=== PATIENT | female | born 1950 | race Caucasian/White ===

== ENCOUNTER → 2018-05-20 | Outpatient (CLI) | payer MEDICARE ==
[2018-05-20 10:12] LABS: Anisocytosis Slight; HCT 36.9 % (34.0-46.0); HGB 12.4 gm/dL (11.4-16.0); MCH 28.6 pg (25.0-35.0); MCHC 33.5 g/dL (31.0-37.0); MCV 85.5 fL (80.0-100.0); Mean Platelet Volume 8.1; Platelet Count 217 k/uL (150-450); RBC 4.32 m/uL (3.80-5.40); RDW 19.6 % (11.5-15.5); WBC 6.3 k/uL (3.8-10.6)
[2018-05-20 10:20] LABS: Partial Thromboplastin Time 22.8 sec (22.0-30.0); Prothrombin Time 10.1 sec (9.0-12.0)
[2018-05-20 10:31] LABS: ALT 12 U/L (9-52); AST 19 U/L (14-36); Albumin 4.1 g/dL (3.5-5.0); Alkaline Phosphatase 111 U/L (38-126); Anion Gap 10 mmol/L; Blood Urea Nitrogen 12 mg/dL (7-17); Calcium 9.5 mg/dL (8.4-10.2); Carbon Dioxide 23 mmol/L (22-30); Chloride 110 mmol/L (98-107); Glucose 97 mg/dL (74-99); Potassium 4.4 mmol/L (3.5-5.1); Sodium 143 mmol/L (137-145); Total Bilirubin 0.4 mg/dL (0.2-1.3); Total Protein 6.7 g/dL (6.3-8.2)
[2018-05-20 10:54] LABS: Appearance,Urine Clear (Clear); Bilirubin,Urine Negative (Negative); Blood,Urine Negative (Negative); Color,Urine Yellow; Glucose,Urine (UA) Negative (Negative); Ketones,Urine Negative (Negative); Leukocyte Esterase,Urine Moderate (Negative); Mucus,Urine Rare /hpf; Nitrite,Urine Negative (Negative); Protein,Urine Trace (Negative); RBC,Urine 2 /hpf (0-5); Specific Gravity,Urine 1.023 (1.001-1.035); Squamous Epithelial Cell,Urine 2 /hpf (0-4); WBC,Urine 8 /hpf (0-5)
== END ==
LOC: LABPAT 09:39
PROVIDERS: ATTEND Orthopaedic Surgery
DX: Z01.812 Encounter for preprocedural laboratory examination (principal)
CPT/HCPCS: 36415; 80053; 81001; 85027; 85610; 85730; 87070

== ENCOUNTER 2018-06-07 09:29 | Inpatient (IN) | payer MEDICARE ==
[2018-05-27 11:43] VITALS: BMI 28.3
[~2018-06-07 09:29] MED LIST: ACETAMINOPHEN TAB 500 MG TAB PO ONE; MELOXICAM 7.5 MG TAB PO ONE; ROPIVACAINE 246.25 MG, EPINEPHrine 0.5 MG, KETOROLAC 30 MG, cloNIDine HCL/PF 80 MCG, WA... MISCELLANE ONE; TRANEXAMIC ACID 1,000 MG in SODIUM CHLORIDE 0.9% 50 ML IVPB ONE; ceFAZolin IN SWFI 2 GM/20 ML SYRINGE IVP ONE; fentaNYL (PF) 50 MCG/ML 2 ML AMP IV PRN
[2018-06-07] MEDS ORDERED: ONDANSETRON 4 MG/2 ML VIAL ONE (11:46)
[2018-06-07] MEDS ORDERED: MIDAZOLAM 2 MG/2 ML VIAL ONE ×2 (11:46→13:59)
[2018-06-07] MEDS ORDERED: LIDOCAINE 1% 20 ML VIAL (10MG/ML) FOR IV START INTRADERMA ONE (12:01)
[2018-06-07] MEDS: LACTATED RINGERS 1,000 ML IV SCH ×2 (12:01→17:59)
[2018-06-07] MEDS ORDERED: ROPIVACAINE 1,100 MG, SODIUM CHLORIDE 0.9% 330 ML MISCELLANE PRN ×2 (12:35)
--- NOTE | 2018-06-07 12:36 | P.ONQ ---
Anesthesiology Proc Note - PNB - Peripheral Nerve Block Performed Right Adductor Canal Infusion Time Out Performed: Yes Procedure Start Time: 12:18 Procedure Stop Time: 12:32 Indication: Acute Post-Operative Pain, Requested by physician (Dr Zavala) Sedation Type: Sedate with meaningful contact maintained Preparation: Sterile Dressing Position: Supine Catheter: Indwelling Needle Types: Touhy Needle Size: 100mm (4") Needle Gauge: 18 Technique: Ultrasound (Image saved) Injectate: 0.5% Ropivacaine (see comment for volume) (30 mls) Blood Aspirated: No Pain Paresthesia on Injection Noted: No Resistance on Injection: Normal Events: Uneventful and Well Tolerated
[2018-06-07] MEDS ORDERED: fentaNYL (PF) 50 MCG/ML 2 ML AMP ONE (13:59)
[2018-06-07] MEDS ORDERED: diphenhydrAMINE 50 MG/ML 1 ML VIAL ONE (13:59)
[2018-06-07] MEDS ORDERED: SODIUM CHLORIDE 0.9% 100 ML BAG ONE (13:59)
[2018-06-07] MEDS ORDERED: TRANEXAMIC ACID 1,000 MG/10 ML VIAL ONE (13:59)
[2018-06-07] MEDS ORDERED: NALOXONE 0.4 MG/ML 1 ML VIAL IV PRN (14:09)
[2018-06-07] MEDS ORDERED: ONDANSETRON 4 MG/2 ML VIAL IVP PRN (14:09)
[2018-06-07] MEDS ORDERED: HYDROmorphone 1 MG/ML 1 ML SYRINGE IVP PRN ×3 (14:09)
[2018-06-07] MEDS ORDERED: MAGNESIUM HYDROXIDE 2,400 MG/10 ML CUP PO PRN (14:09)
[2018-06-07] MEDS ORDERED: hydrOXYzine PAMOATE 25 MG CAP PO PRN (14:09)
[2018-06-07] MEDS ORDERED: BISACODYL 10 MG SUPP RECTAL PRN (14:09)
[2018-06-07] MEDS ORDERED: DIAZEPAM 5 MG TAB PO PRN (14:09)
[2018-06-07] MEDS ORDERED: NA PHOS,M-B/NA PHOS,DI-BA 133 ML ENEMA RECTAL PRN (14:09)
[2018-06-07] MEDS ORDERED: traMADol 50 MG TAB PO PRN ×2 (14:11)
[2018-06-07] MEDS ORDERED: ceFAZolin 3,000 MG in SODIUM CHLORIDE 0.9% IRRIGATIO 3,000 ML IRRIGATION ONE (14:32)
--- NOTE | 2018-06-07 15:05 | P.OP ---
Date of Procedure: 06/07/18 Preoperative Diagnosis: Severe osteoarthritis right knee Postoperative Diagnosis: Severe osteoarthritis right knee Procedure(s) Performed: Right total knee arthroplasty Implants: Hough and Nephew Oxinium femoral component size 5, right Hough & Nephew Audrey II right nonporous tibial baseplate size 5 Hough [employer] Nephew size 9 mm Legion XLPE dished articular insert, size 5-6 Hough [employer] Nephew Audrey II resurfacing patellar component, 32 mm All components were cemented using Trevor bone cement.. The articulation is Oxinium on polyethylene. Anesthesia: spinal Surgeon: Rito Zavala Trimmer Buffing Wheel #1: Shyla Walsh Estimated Blood Loss (ml): 50 Pathology: other (Bone and cartilage) Condition: stable Disposition: PACU Indications for Procedure: After failure of conservative treatment we discussed the surgical and nonsurgical treatment options at length. Patient wishes to proceed with a total knee arthroplasty. Complications specific to this procedure were discussed at length, including but not limited to infection, bleeding, stiffness , and nerve injury. Patient is aware of all these complications and informed consent was obtained Operative Findings: The operative findings are consistent with severe osteoarthritis of the right knee Description of Procedure: Patient was seen in the preoperative area consent was reviewed and operative site was marked with a skin marker. An adductor canal pain catheter was placed by anesthesia in the preoperative area. Patient was then brought to the operating room and given preoperative antibiotics intravenously. A spinal anesthetic was administered by the anesthesia department. A tourniquet was placed on the upper thigh and the lower extremity was prepped and draped in usual sterile fashion. A gram of transexamic acid was given. A universal timeout was then performed which confirmed the patient's name, surgical site, ALLERGIES, and consent. The lower extremity was then exsanguinated and tourniquet was inflated to 250 mmHg. A standard and anterior midline approach to the knee was performed. The skin and subcutaneous tissue was dissected down to the patellar tendon. A medial parapatellar arthrotomy was then performed. The knee was then extended, the patellar was everted, and the knee was again flexed. Anterior horns of both menisci were excised, and a release was performed to the posterior medial aspect of the knee. On gross visual inspection, there was complete loss of articular cartilage in the medial and patellofemoral joint spaces. There was also significant cartilage damage in the lateral compartment. There were multiple periarticular osteophytes which were then removed with a Ronguer. The femoral canal was then opened with the appropriate drill, and the intramedullary femoral cutting guide was then placed and set for 4 of valgus. The distal femoral cutting block was then pinned in place, and the distal femur was then cut. The cutting block was then removed and the cut was checked for flatness. Next, the sizing guide was then placed and set for 3 external rotation based off of the epicondylar axis and Whitesides line. After the femur was sized, the appropriate 4-in-1 cutting block was then pinned in place. The anterior condyles were cut without notching. The posterior and chamfer cuts were performed while protecting the collateral ligaments. The cutting block was then removed, and the femoral canal was plugged with autologous bone. Attention was then directed to the tibia. The remaining ACL was removed with a Ronguer, and the tibia was then gently subluxed forward with a large bent knee retractor. Any remaining menisci was excised. The posterior lateral corner was cauterized in order to cauterize the lateral geniculate artery. The extra medullary tibial cutting guide was then placed, set for the appropriate rotation , slope, and depth of resection. The proximal tibia cutting guide was then pinned in place. Proximal tibia was then cut and sized. Next trials were then placed with the appropriate-sized insert. The knee was able to fully extend and flex to 130 and was stable throughout all range of motion. The knee was then extended, patella everted. Patella was then measured, and then using an osteotomy guide, the patella was cut at the appropriate level. The patella was then measured and drilled and the patella trial was then placed. The knee was then taken through range of motion with the patella trial and the patella tracked normally. The knee was then extended patella trial was then removed and the patella was everted. Knee was then flexed and lug holes were drilled through the femoral trial and the femoral trial was then removed. The tibial was then exposed, and the tibial broach guide was then pinned in place after it was set for the appropriate rotation to allow for the most coverage without overhang. The tibia was then reamed and broached. The cut surfaces of bone were then irrigated with pulsatile lavage. The posterior structures were injected with the ropivacaine solution. The knee was also irrigated with Irrisept solution. The components were then opened, the cement was mixed, and the components were then cemented in place. The cement was allowed to harden with the knee in full extension. While the cement was hardening, the remaining soft tissues were then injected with a ropivacaine solution, which consisted of 246.25 mg of ropivacaine, 0.5 mg of epinephrine, 30 mg of Toradol, 80 g of clonidine, and 48.45 mL of sterile water, for a total of 100 mL of fluid injected. After the cemented hardened. The tourniquet was released, and hemostasis was obtained. A second gram of transexamic acid was given. The knee was again irrigated. The knee was again taken through range of motion and found to be stable throughout all range of motion of 0-130 , and the patella tracked normally. The fascia was then closed with #2 strata fix suture. The subcutaneous tissue was closed with 3-0 Vicryl and 3-0 strata fix. Dermabond glue was used for the skin and placed with the knee in flexion. The patient was placed in a sterile silver dressing. Patient was then transferred to recovery room in stable condition. The classroom assistant OSIRIS Albarado was required due the complexity surgery and the need for a skilled marketing operations assistant. She assisted in positioning, draping, retraction, and closure of the wound.
--- NOTE | 2018-06-07 15:56 | XR ---
EXAMINATION TYPE: XR knee limited RT DATE OF EXAM: 06/07/2018 CLINICAL HISTORY: Right knee pain and arthritis status post total knee replacement. TECHNIQUE: Portable AP and crosstable lateral views of the right knee are obtained immediately posto peratively. COMPARISON: None FINDINGS: Metallic hardware from total right knee arthroplasty is seen and appears satisfactory in a lignment and position. There is evidence of recent surgery with diffuse subcutaneous gas and soft ti ssue swelling noted. Incidental posterior vascular calcification is seen. [place] osseous structures a re demineralized. IMPRESSION: METALLIC HARDWARE FROM TOTAL RIGHT KNEE ARTHROPLASTY IS SATISFACTORY IN ALIGNMENT.
[2018-06-07] MEDS ORDERED: ALBUTEROL NEBULIZED 2.5 MG/3 ML INHALATION PRN (17:50)
[2018-06-07] MEDS ORDERED: FUROSEMIDE 10 MG TAB PO SCH (18:00)
[2018-06-07] MEDS ORDERED: FUROSEMIDE 20 MG TAB PO SCH (18:00)
[2018-06-07] MEDS: IPRATROPIUM-ALBUTEROL 3 ML NEB INHALATION SCH ×2 (18:08→20:44)
--- NOTE | 2018-06-07 18:09 | P.CONS ---
History of Present Illness - Reason for Consult Consult date: 06/07/18 COPD Requesting physician: Rito Zavala - Chief Complaint knee pain - History of Present Illness Patient is a 67-year-old female with past medical history of COPD, hypertension, atrial fibrillation, and dyslipidemia who presented to the hospital for elective right total knee arthroplasty. She underwent surgery without any immediate postoperative complications. We were asked to consult for medical management. Patient seen and examined at bedside. She is feeling slightly short of breath postoperatively as it is time for her normal breathing treatment. No chest pain , nausea. Pain is well controlled currently. She did have an upper respiratory tract infection about 10 days ago and she completed a course of antibiotics and a prednisone course. Her cough has greatly improved since then. She reports no unusual shortness of breath, chest pain, palpitations. She has not had any unusual nausea, vomiting, diarrhea, constipation, or dysuria. Review of Systems Pertinent positives and negatives as discussed in HPI, a complete review of systems was performed and all other systems are negative. Past Medical History Past Medical History: Atrial Fibrillation, COPD, GERD/Reflux, Hypertension, Osteoarthritis (OA) Additional Past Medical History / Comment(s): SOB WITH ACTIVITY., HX OF GI BLEED WHILE ON ELIQUIS- RECEIVED IRON & BLOOD TRANSFUSIONS., ANEMIA.,ARTHRITIS BOTH KNEES WITH DIFFICULTY WALKING. History of Any Multi-Drug Resistant Organisms: None Reported Past Surgical History: Appendectomy, Bladder Surgery, Hysterectomy, Tonsillectomy Additional Past Surgical History / Comment(s): D & C WITH BLADDER SUSPENSION., 3 SURGERIES FOR HYSTERECTOMY. b/l knee arthroscopy both done twice Past Anesthesia/Blood Transfusion Reactions: No Reported Reaction Additional Past Anesthesia/Blood Transfusion Reaction / Comm: MOTHER= HALLUCINATIONS. Past Psychological History: No Psychological Hx Reported Smoking Status: Current every day smoker Past Alcohol Use History: None Reported Additional Past Alcohol Use History / Comment(s): SMOKES 1 PPD. SMOKING ON AND OFF SINCE 14 YRS OLD. For the last week 1-2 cigs daily Past Drug Use History: None Reported Additional History: Lives at home with her . No assistive devices at baseline. - Past Family History Mother Family Medical History: Cancer, Hypertension Additional Family Medical History / Comment(s): COLON CANCER Sister(s) Family Medical History: Cancer Additional Family Medical History / Comment(s): 1 SISTER= COLON CANCER. 1 SISTER=BRAIN TUMOR. 2 sisters=DM2 Medications and Allergies Home Medications Medication Instructions Recorded Confirmed Type Aspirin 325 mg PO DAILY 05/27/18 06/07/18 History Atorvastatin [Lipitor] 20 mg PO HS 05/27/18 06/07/18 History Ferrous Sulfate [Iron] 325 mg PO DAILY 05/27/18 06/07/18 History Furosemide [Lasix] 10 mg PO Q48H 05/27/18 06/07/18 History Ibuprofen 400 mg PO DIRECTED PRN 05/27/18 06/07/18 History Ipratropium-Albuterol Nebulize 3 ml INHALATION DIRECTED PRN 05/27/18 History [Duoneb 0.5 mg-3 mg/3 ml Soln] Ranitidine HCl 150 mg PO BID 05/27/18 06/07/18 History Verapamil HCl [Verapamil ER] 180 mg PO BID 05/27/18 06/07/18 History guaiFENesin [Mucinex] 1,200 mg PO BID 05/27/18 06/07/18 History Allergies Allergy/AdvReac Type Severity Reaction Status Date / Time hydrocodone [From Vicodin] Allergy Severe Rash/Hives, Verified 06/07/18 17:27 Itching codeine Allergy Unknown Rash/Hives, Verified 06/07/18 17:27 Itching apixaban [From Eliquis] AdvReac Severe Bleeding Verified 06/07/18 17:27 in Stomach and Bowel Physical Exam Osteopathic Statement: *. No significant issues noted on an osteopathic structural exam other than those noted in the History and Physical/Consult. Vitals: Vital Signs Temp Pulse Pulse Resp BP Pulse Ox 06/07/18 16:50 74 16 138/61 98 06/07/18 16:22 65 16 123/61 98 06/07/18 16:07 68 18 124/59 97 06/07/18 15:52 71 18 152/67 94 L 06/07/18 15:37 98.0 F 86 22 157/71 95 06/07/18 12:34 73 16 120/56 99 06/07/18 11:44 98.2 F 92 16 141/64 98 Intake and Output 06/07/18 06/07/18 06/07/18 06:59 14:59 22:59 Intake Total 901 0 Output Total 50 Balance 901 -50 Intake: IV 901 0 Output: Estimated Blood Loss 50 General: non toxic, no distress, appears at stated age, normal weight Derm: Right leg with dressing in place no unusual rashes/lesions no unusual ecchymoses, warm, dry Head: atraumatic, normocephalic, symmetric Eyes: EOMI, no lid lag, anicteric sclera, pupils equal round reactive to light ENT: Nose and ears atraumatic, no thrush, no pharyngeal erythema Neck: No thyromegaly, no cervical lymphadenopathy, trachea midline, supple Mouth: no lip lesion, mucus membranes moist Cardiovascular: S1S2 reg, no murmur, positive posterior tibial pulse bilateral, no edema, capillary refill less than 2 seconds Lungs: His breath sounds bilaterally, no wheeze, no rhonchi, no rales , no accessory muscle use Abdominal: soft, nontender to palpation, no guarding, no appreciable organomegaly, normal bowel sounds Ext: no gross muscle atrophy, muscle strength 5 out of 5 in bilateral upper extremity is, able to wiggle toes and bilateral lower extremities, no contractures, Neuro: CN II-XI grossly intact, light touch intact bilateral upper extremities , finger to nose within normal limits, Psych: Alert, oriented, appropriate affect Results Comments: Her current blood work was reviewed by myself. Hemoglobin stable at 12.4. Assessment and Plan Assessment: Osteoarthritis status post right total knee arthroplasty -Pain management per orthopedics -DVT prophylaxis with aspirin twice a day per orthopedic surgery. Will initiate Protonix daily while completing 30 days of aspirin therapy as patient has a history of a GI bleed in the past associated with eliquis. -PT/OT evaluation -Patient with on going home with home health care. No preferences at this point in time. COPD without acute exacerbation -Resume home bronchodilators -When necessary albuterol -Pulmonary hygiene -Continue guaifenesin Hypertension, slightly elevated after OR -Resume home for Actonel and Lasix Dyslipidemia -Statin therapy Persistent atrial fibrillation -Not chronically on anticoagulation secondary to history of GI bleed, takes aspirin 325 once daily at home -Resume home verapamil Thank you for allowing us to participate in the care of this patient. Do not hesitate to contact us with questions. Someone can be reached from the [facility] hospitalist group at all hours of the day at [phone]. Surrogate decision-maker: DVT prophylaxis: Aspirin twice daily
[2018-06-07] MEDS: PANTOPRAZOLE 40 MG TABLET PO SCH (19:40)
[2018-06-07] MEDS: SODIUM CHLORIDE 0.9% 1,000 ML IV SCH (19:42)
[2018-06-07 20:17] LABS: Glucose,Whole Blood 99 mg/dL (75-99)
[2018-06-07] MEDS: ASPIRIN 325 MG TAB PO SCH (20:34)
[2018-06-07] MEDS: VERAPAMIL SR 180 MG TABLET.ER PO SCH (20:34)
[2018-06-07] MEDS: guaiFENesin 600 MG TABLET.ER PO SCH (20:34)
[2018-06-07] MEDS: ceFAZolin IN SWFI 2 GM/20 ML SYRINGE IVP SCH (20:35)
[2018-06-07] MEDS ORDERED: ATORVASTATIN 20 MG TAB PO SCH (21:00)
[2018-06-07] MEDS ORDERED: SENNOSIDES-DOCUSATE SODIUM 1 EACH TAB PO SCH (21:00)
[2018-06-08] MEDS: ceFAZolin IN SWFI 2 GM/20 ML SYRINGE IVP SCH (05:04)
[2018-06-08] MEDS: SODIUM CHLORIDE 0.9% 1,000 ML IV SCH (05:04)
[2018-06-08 06:49] LABS: Glucose,Whole Blood 101 mg/dL (75-99)
[2018-06-08] MEDS: IPRATROPIUM-ALBUTEROL 3 ML NEB INHALATION SCH ×2 (06:54→10:39)
[2018-06-08 07:44] LABS: Anisocytosis Slight; Basophils % (A) 0 %; Eosinophils # (A) 0.3 k/uL (0-0.7); Eosinophils % (A) 3 %; HCT 32.3 % (34.0-46.0); HGB 10.4 gm/dL (11.4-16.0); Lymphocytes # (A) 1.3 k/uL (1.0-4.8); Lymphocytes % (A) 13 %; MCH 28.2 pg (25.0-35.0); MCHC 32.3 g/dL (31.0-37.0); MCV 87.2 fL (80.0-100.0); Mean Platelet Volume 6.9; Monocytes # (A) 0.6 k/uL (0-1.0); Monocytes % (A) 6 %; Neutrophils # (A) 7.7 k/uL (1.3-7.7); Neutrophils % (A) 78 %; Platelet Count 223 k/uL (150-450); RBC 3.71 m/uL (3.80-5.40); RDW 19.5 % (11.5-15.5); WBC 9.9 k/uL (3.8-10.6)
[2018-06-08 07:46] VITALS: BP 125/44; PULSE 86; RESP 19; TEMP 98.5
[2018-06-08] MEDS: VERAPAMIL SR 180 MG TABLET.ER PO SCH (08:17)
[2018-06-08] MEDS: FERROUS SULFATE 325 MG TAB PO SCH (08:18)
[2018-06-08] MEDS: MELOXICAM 7.5 MG TAB PO SCH ×2 (08:18→08:19)
[2018-06-08] MEDS: guaiFENesin 600 MG TABLET.ER PO SCH (08:18)
[2018-06-08] MEDS: PANTOPRAZOLE 40 MG TABLET PO SCH (08:19)
[2018-06-08] MEDS: ASPIRIN 325 MG TAB PO SCH (08:19)
--- NOTE | 2018-06-08 08:29 | P.DS ---
Providers Date of admission: 06/07/18 11:06 Expected date of discharge: 06/08/18 Attending physician: Rito Zavala Consults: 06/07/18 14:09 Consult Physician Routine Consulting Provider: Guera Echavarria Consult Reason/Comments: medical management Do you want consulting provider notified?: Yes Primary care physician: Aylin Srivastava - Discharge Diagnosis(es) (1) Primary osteoarthritis of right knee Current Visit: Yes Status: Acute (2) Status post total right knee replacement Current Visit: Yes Status: Acute Hospital Course: This is a 67-year-old female with known history of degenerative arthritis of the right knee. The patient presents for evaluation. After discussion and consideration patient elects to proceed with total knee arthroplasty. The patient is seen preoperatively by Dr. Zavala and medically cleared for surgery by their primary care physician. Patient is admitted to [facility] on 06/07/2018 for total knee arthroplasty. The procedures performed without complication or sequelae. The patient is doing well postoperatively. Labs and vital signs are stable on day of discharge. On day of discharge patient's knee incision is healing well. There is minimal erythema. There is no drainage noted at this time. There is minimal soft tissue swelling to the knee. Patient has full foot and ankle motion without difficulty or pain. Neurovascular status to the right lower extremity is intact. Patient is discharged home in good condition. Please see med rec for accurate list of home medications. Plan - Discharge Summary Discharge Rx Participant: No New Discharge Prescriptions: New Aspirin 325 mg PO BID #60 tab Sennosides [Senokot] 1 tab PO BID #60 tablet traMADol HCl [Ultram] 1 - 2 tab PO Q6H PRN #56 tab PRN Reason: Pain No Action Verapamil HCl [Verapamil ER] 180 mg PO BID Furosemide [Lasix] 10 mg PO Q48H Atorvastatin [Lipitor] 20 mg PO HS guaiFENesin [Mucinex] 1,200 mg PO BID Ipratropium-Albuterol Nebulize [Duoneb 0.5 mg-3 mg/3 ml Soln] 3 ml INHALATION DIRECTED PRN PRN Reason: Shortness Of Breath Ranitidine HCl 150 mg PO BID Aspirin 325 mg PO DAILY Ibuprofen 400 mg PO DIRECTED PRN PRN Reason: Pain Ferrous Sulfate [Iron] 325 mg PO DAILY Discharge Medication List Aspirin 325 mg PO DAILY 05/27/18 [History] Atorvastatin [Lipitor] 20 mg PO HS 05/27/18 [History] Ferrous Sulfate [Iron] 325 mg PO DAILY 05/27/18 [History] Furosemide [Lasix] 10 mg PO Q48H 05/27/18 [History] Ibuprofen 400 mg PO DIRECTED PRN 05/27/18 [History] Ipratropium-Albuterol Nebulize [Duoneb 0.5 mg-3 mg/3 ml Soln] 3 ml INHALATION DIRECTED PRN 05/27/18 [History] Ranitidine HCl 150 mg PO BID 05/27/18 [History] Verapamil HCl [Verapamil ER] 180 mg PO BID 05/27/18 [History] guaiFENesin [Mucinex] 1,200 mg PO BID 05/27/18 [History] Aspirin 325 mg PO BID #60 tab 06/08/18 [Rx] Sennosides [Senokot] 1 tab PO BID #60 tablet 06/08/18 [Rx] traMADol HCl [Ultram] 1 - 2 tab PO Q6H PRN #56 tab 06/08/18 [Rx] Follow up Appointment(s)/Referral(s): Rito Zavala DO [Doctor of Osteopathic Medicine] - 2 Weeks Activity/Diet/Wound Care/Special Instructions: Weightbearing as tolerated with a walker Leave dressing intact. May be removed by home care nurse in 10 days. May shower with dressing on. Please call [facility] with any questions or concerns, Discharge Disposition: HOME WITH HOME HEALTH SERVICES
[2018-06-08] MEDS ORDERED: HYDROmorphone 2 MG TAB PO PRN ×3 (09:30→09:31)
--- NOTE | 2018-06-08 10:09 | P.PN ---
Subjective Progress Note Date: 06/08/18 Principal diagnosis: knee pain Patient is a 67-year-old female with past medical history of COPD, hypertension, atrial fibrillation, and dyslipidemia who presented to the hospital for elective right total knee arthroplasty. She underwent surgery without any immediate postoperative complications. We were asked to consult for medical management. Patient seen and examined at bedside. She is feeling well postoperatively. Pain is well controlled. No chest pain. No bowel movement since surgery. Breathing is back to her baseline. We discussed the fact of taking omeprazole once daily was just completing her 325 mg aspirin twice a day secondary to her history of GI bleed. When she completes her aspirin twice a day she should resume her aspirin daily with her history of atrial fibrillation. We discussed the fact that she has some postoperative acute blood loss anemia but is anticipated and she should continue her iron replacement at home. Objective - Vital Signs Vital signs: Vital Signs Temp 98.5 F 06/08/18 07:15 Pulse 86 06/08/18 07:15 Resp 19 06/08/18 07:15 BP 125/44 06/08/18 07:15 Pulse Ox 93 L 06/08/18 07:15 Intake & Output 06/07/18 06/08/18 06/08/18 18:59 06:59 18:59 Intake Total 1376 812.5 118 Output Total 50 Balance 1326 812.5 118 Intake: IV 901 Intake, IV Titration 812.5 Amount Sodium Chloride 0.9% 1, 812.5 000 ml @ 65 mls/hr IV . [id number] [facility] Rx#:[id number] Oral 475 118 Output: Estimated Blood Loss 50 Other: Voiding Method Bedside Commode # Voids 1 - Exam General: non toxic, no distress, appears at stated age Derm: Dressing in place over right lower extremity warm, dry Head: atraumatic, normocephalic, symmetric Eyes: EOMI, no lid lag, anicteric sclera Mouth: no lip lesion, mucus membranes moist Cardiovascular: S1S2 reg, no murmur, positive posterior tibial pulse bilateral, Lungs: CTA bilateral, no rhonchi, no rales , no accessory muscle use Abdominal: soft, nontender to palpation, no guarding, no appreciable organomegaly Ext: no gross muscle atrophy, no edema, no contractures Neuro: CN II-XI grossly intact, no focal neuro deficits Psych: Alert, oriented, appropriate affect - Labs CBC & Chem 7: 06/08/18 06:39 Labs: Abnormal Lab Results - Last 24 Hours (Table) 06/08/18 06/08/18 Range/Units 06:39 06:47 RBC 3.71 L (3.80-5.40) m/uL Hgb 10.4 L (11.4-16.0) gm/dL Hct 32.3 L (34.0-46.0) % RDW 19.5 H (11.5-15.5) % POC Glucose (mg/dL) 101 H (75-99) mg/dL Assessment and Plan Assessment: Osteoarthritis status post right total knee arthroplasty -Pain management per orthopedics -DVT prophylaxis with aspirin twice a day per orthopedic surgery.Omeprazole daily while completing 30 days of aspirin therapy as patient has a history of a GI bleed in the past associated with eliquis. -PT/OT evaluation -Patient with on going home with home health care. No preferences at this point in time. Acute blood loss anemia, anticipated related to surgery -Continue home iron supplementation COPD without acute exacerbation -Resume home regiment Hypertension, slightly elevated after OR -Resume home for Actonel and Lasix Dyslipidemia -Statin therapy Persistent atrial fibrillation -Not chronically on anticoagulation secondary to history of GI bleed, takes aspirin 325 once daily at home. Discussed with patient resuming her once daily aspirin after her twice daily aspirin regimen is completed. -verapamil Medically stable for discharge at the discretion of orthopedic surgery. Surrogate decision-maker: DVT prophylaxis: Aspirin twice daily
== END 2018-06-08 11:10 | disposition home health service (06) | DRG 470 ==
LOC: 2ORMAIN 11:06 → 3SUR 17:02
PROVIDERS: ADMIT Orthopaedic Surgery; ATTEND Orthopaedic Surgery
PROC: 0SRC069 Replacement of Right Knee Joint with Oxidized Zirconium on Polyethylene Synthetic Substitute, Cemented, Open Approach (ICD-10-PCS; principal; 2018-06-07 13:45)
DX: M17.11 Unilateral primary osteoarthritis, right knee (principal); I48.1 Persistent atrial fibrillation; D62 Acute posthemorrhagic anemia; J44.9 Chronic obstructive pulmonary disease, unspecified; E78.5 Hyperlipidemia, unspecified; I10 Essential (primary) hypertension; K21.9 Gastro-esophageal reflux disease without esophagitis; F17.210 Nicotine dependence, cigarettes, uncomplicated; Z71.6 Tobacco abuse counseling; Z79.82 Long term (current) use of aspirin; Z79.899 Other long term (current) drug therapy; Z90.710 Acquired absence of both cervix and uterus; Z90.49 Acquired absence of other specified parts of digestive tract; Z96.652 Presence of left artificial knee joint; Z88.5 Allergy status to narcotic agent; Z88.8 Allergy status to other drugs, medicaments and biological substances; Z80.0 Family history of malignant neoplasm of digestive organs; Z82.49 Family history of ischemic heart disease and other diseases of the circulatory system; Z83.3 Family history of diabetes mellitus
CPT/HCPCS: 85025; 88300; 94640

== ENCOUNTER → 2018-07-20 | Outpatient (CLI) | payer MEDICARE ==
[2018-07-20 14:46] LABS: Anisocytosis Slight; Appearance,Urine Clear (Clear); Bilirubin,Urine Negative (Negative); Blood,Urine Negative (Negative); Color,Urine Yellow; Glucose,Urine (UA) Negative (Negative); HCT 41.5 % (34.0-46.0); Hypochromasia Slight; Ketones,Urine Negative (Negative); Leukocyte Esterase,Urine Negative (Negative); MCH 30.4 pg (25.0-35.0); MCHC 32.2 g/dL (31.0-37.0); Mean Platelet Volume 7.2; Nitrite,Urine Negative (Negative); Platelet Count 316 k/uL (150-450); Protein,Urine Trace (Negative); RBC 4.39 m/uL (3.80-5.40); RDW 17.5 % (11.5-15.5); Specific Gravity,Urine 1.039 (1.001-1.035); WBC 9.3 k/uL (3.8-10.6)
[2018-07-20 14:50] LABS: Partial Thromboplastin Time 22.4 sec (22.0-30.0); Prothrombin Time 10.1 sec (9.0-12.0)
[2018-07-20 14:52] LABS: HGB 13.4 gm/dL (11.4-16.0); MCV 94.5 fL (80.0-100.0)
[2018-07-20 14:55] LABS: Anion Gap 8 mmol/L; Blood Urea Nitrogen 17 mg/dL (7-17); Carbon Dioxide 23 mmol/L (22-30); Chloride 109 mmol/L (98-107); Potassium 4.1 mmol/L (3.5-5.1); Sodium 140 mmol/L (137-145)
== END ==
LOC: LABPAT 13:52
PROVIDERS: ATTEND Orthopaedic Surgery
DX: Z01.812 Encounter for preprocedural laboratory examination (principal)
CPT/HCPCS: 80051; 81003; 82565; 84520; 85027; 85610; 85730; 87070

== ENCOUNTER 2018-08-02 14:02 | Inpatient (IN) | payer MEDICARE ==
[2018-07-28 10:12] VITALS: BMI 28.0
[~2018-08-02 14:02] MED LIST changes: -fentaNYL (PF) 50 MCG/ML 2 ML AMP IV PRN
[2018-08-02] MEDS ORDERED: LIDOCAINE 1% 20 ML VIAL (10MG/ML) FOR IV START INTRADERMA ONE (14:35)
[2018-08-02] MEDS ORDERED: HYDROmorphone 1 MG/ML 1 ML SYRINGE IVP PRN ×4 (14:42→15:54)
[2018-08-02] MEDS ORDERED: ONDANSETRON 4 MG/2 ML VIAL IVP ONE (14:42)
[2018-08-02] MEDS ORDERED: SCOPOLAMINE 1.5MG/72HR PATCH TRANSDERM ONE (14:42)
[2018-08-02] MEDS ORDERED: MIDAZOLAM 2 MG/2 ML VIAL IV PRN (14:42)
[2018-08-02] MEDS ORDERED: DEXAMETHASONE SOD PHOSPHATE 10 MG/ML 1 ML VIAL IV ONE (14:42)
[2018-08-02] MEDS ORDERED: LIDOCAINE 1% 20 ML VIAL (10MG/ML) FOR IV START INTRADERMA PRN (14:42)
[2018-08-02] MEDS ORDERED: LACTATED RINGERS 1,000 ML IV SCH (14:45)
[2018-08-02] MEDS ORDERED: fentaNYL (PF) 50 MCG/ML 2 ML AMP IV ONE (15:25)
[2018-08-02] MEDS ORDERED: MIDAZOLAM 2 MG/2 ML VIAL IV ONE (15:25)
[2018-08-02] MEDS ORDERED: BISACODYL 10 MG SUPP RECTAL PRN (15:54)
[2018-08-02] MEDS ORDERED: NALOXONE 0.4 MG/ML 1 ML VIAL IV PRN (15:54)
[2018-08-02] MEDS ORDERED: hydrOXYzine PAMOATE 25 MG CAP PO PRN (15:54)
[2018-08-02] MEDS ORDERED: NA PHOS,M-B/NA PHOS,DI-BA 133 ML ENEMA RECTAL PRN (15:54)
[2018-08-02] MEDS ORDERED: ONDANSETRON 4 MG/2 ML VIAL IVP PRN (15:54)
[2018-08-02] MEDS ORDERED: MAGNESIUM HYDROXIDE 2,400 MG/10 ML CUP PO PRN (15:54)
[2018-08-02] MEDS ORDERED: HYDROcodone/APAP 5-325MG 1 EACH TAB PO PRN ×2 (15:54)
[2018-08-02] MEDS ORDERED: DIAZEPAM 5 MG TAB PO PRN (15:54)
[2018-08-02] MEDS ORDERED: traMADol 50 MG TAB PO PRN ×2 (15:57)
[2018-08-02] MEDS ORDERED: ceFAZolin 3,000 MG in SODIUM CHLORIDE 0.9% IRRIGATIO 3,000 ML IRRIGATION ONE (16:48)
[2018-08-02] MEDS ORDERED: ROPIVACAINE 1,100 MG, SODIUM CHLORIDE 0.9% 500 ML 330 ML MISCELLANE PRN ×2 (17:31)
--- NOTE | 2018-08-02 17:31 | P.ONQ ---
Anesthesiology Proc Note - PNB - Peripheral Nerve Block Performed Left Adductor Canal Infusion Time Out Performed: Yes Procedure Start Time: 15:20 Indication: Acute Post-Operative Pain, Analgesia Specifically requested for management of pain by DrRadha: Rito Zavala Sedation Type: Sedate with meaningful contact maintained Preparation: Sterile Prep Position: Supine Catheter Depth at Skin (cm): 8 Catheter: Indwelling Needle Types: Other (see comment) (Pajunk) Needle Size: 100mm (4") Needle Gauge: 18 Technique: Ultrasound Injectate: 0.5% Ropivacaine (see comment for volume) (20 cc) Blood Aspirated: No Pain Paresthesia on Injection Noted: No Resistance on Injection: Normal Events: Uneventful and Well Tolerated
--- NOTE | 2018-08-02 17:31 | P.OP ---
Date of Procedure: 08/02/18 Preoperative Diagnosis: Severe osteoarthritis left knee Postoperative Diagnosis: Severe osteoarthritis left knee Procedure(s) Performed: Left total knee arthroplasty Implants: [employer] II CR Oxinium cruciate retaining femoral component size 5, left [employer] left nonporous tibial baseplate size 5 [employer] II, XLPE CR articular insert, size 9 mm, Size 5-6 left [employer] BCS resurfacing oval patellar component, 32 mm All components were cemented using Palacos R bone cement.. The articulation is Oxinium on polyethylene. Anesthesia: spinal Surgeon: Rito Zavala [employer] Service Advisor #1: Shyla Walsh Estimated Blood Loss (ml): 25 Pathology: other (Bone and cartilage) Condition: stable Disposition: PACU Indications for Procedure: After failure of conservative treatment we discussed the surgical and nonsurgical treatment options at length. Patient wishes to proceed with a total knee arthroplasty. Complications specific to this procedure were discussed at length, including but not limited to infection, bleeding, stiffness , and nerve injury. Patient is aware of all these complications and informed consent was obtained Operative Findings: The operative findings are consistent with severe osteoarthritis of the left knee Description of Procedure: Patient was seen in the preoperative area consent was reviewed and operative site was marked with a skin marker. An adductor canal pain catheter was placed by anesthesia in the preoperative area. Patient was then brought to the operating room and given preoperative antibiotics intravenously. A spinal anesthetic was administered by the anesthesia department. A tourniquet was placed on the upper thigh and the lower extremity was prepped and draped in usual sterile fashion. A gram of transexamic acid was given. A universal timeout was then performed which confirmed the patient's name, surgical site, ALLERGIES, and consent. The lower extremity was then exsanguinated and tourniquet was inflated to 250 mmHg. A standard and anterior midline approach to the knee was performed. The skin and subcutaneous tissue was dissected down to the patellar tendon. A medial parapatellar arthrotomy was then performed. The knee was then extended, the patellar was everted, and the knee was again flexed. Anterior horns of both menisci were excised, and a release was performed to the posterior medial aspect of the knee. On gross visual inspection, there was complete loss of articular cartilage in the medial and patellofemoral joint spaces. There was also significant cartilage damage in the lateral compartment. There were multiple periarticular osteophytes which were then removed with a Ronguer. The femoral canal was then opened with the appropriate drill, and the intramedullary femoral cutting guide was then placed and set for 5 of valgus. The distal femoral cutting block was then pinned in place, and the distal femur was then cut. The cutting block was then removed and the cut was checked for flatness. Next, the sizing guide was then placed and set for 3 external rotation based off of the epicondylar axis and Whitesides line. After the femur was sized, the appropriate 4-in-1 cutting block was then pinned in place. The anterior condyles were cut without notching. The posterior and chamfer cuts were performed while protecting the collateral ligaments. The cutting block was then removed, and the femoral canal was plugged with autologous bone. Attention was then directed to the tibia. The remaining ACL was removed with a Ronguer, and the tibia was then gently subluxed forward with a large bent knee retractor. Any remaining menisci was excised. The posterior lateral corner was cauterized in order to cauterize the lateral geniculate artery. The extra medullary tibial cutting guide was then placed, set for the appropriate rotation , slope, and depth of resection. The proximal tibia cutting guide was then pinned in place. Proximal tibia was then cut and sized. Next trials were then placed with the appropriate-sized insert. The knee was able to fully extend and flex to 130 and was stable throughout all range of motion. The knee was then extended, patella everted. Patella was then measured, and then using an osteotomy guide, the patella was cut at the appropriate level. The patella was then measured and drilled and the patella trial was then placed. The knee was then taken through range of motion with the patella trial and the patella tracked normally. The knee was then extended patella trial was then removed and the patella was everted. Knee was then flexed and lug holes were drilled through the femoral trial and the femoral trial was then removed. The tibial was then exposed, and the tibial broach guide was then pinned in place after it was set for the appropriate rotation to allow for the most coverage without overhang. The tibia was then reamed and broached. The cut surfaces of bone were then irrigated with pulsatile lavage. The posterior structures were injected with the ropivacaine solution. The knee was also irrigated with Irrisept solution. The components were then opened, the cement was mixed, and the components were then cemented in place. The cement was allowed to harden with the knee in full extension. While the cement was hardening, the remaining soft tissues were then injected with a ropivacaine solution, which consisted of 246.25 mg of ropivacaine, 0.5 mg of epinephrine, 30 mg of Toradol, 80 g of clonidine, and 48.45 mL of sterile water, for a total of 100 mL of fluid injected. After the cemented hardened. The tourniquet was released, and hemostasis was obtained. A second gram of transexamic acid was given. The knee was again irrigated. The knee was again taken through range of motion and found to be stable throughout all range of motion of 0-130 , and the patella tracked normally. The fascia was then closed with #2 strata fix suture. The subcutaneous tissue was closed with 3-0 Vicryl and 3-0 strata fix. Dermabond glue was used for the skin and placed with the knee in flexion. The patient was placed in a sterile silver dressing. Patient was then transferred to recovery room in stable condition. The visitor use assistant OSIRIS Albarado was required due the complexity surgery and the need for a skilled surgical technologist. She assisted in positioning, draping, retraction, and closure of the wound.
[2018-08-02] MEDS ORDERED: LACTATED RINGERS 1,000 ML IV ONE (17:38)
--- NOTE | 2018-08-02 18:37 | XR ---
EXAMINATION TYPE: XR knee limited LT DATE OF EXAM: 08/02/2018 COMPARISON: NONE HISTORY: Postop knee surgery TECHNIQUE: 2 views FINDINGS: There is left total knee prosthesis. Components are in anatomic position. There is vascular calcification. IMPRESSION: Left knee prosthesis. No complicating process seen.
[2018-08-02] MEDS ORDERED: SENNOSIDES-DOCUSATE SODIUM 1 EACH TAB PO SCH (21:00)
[2018-08-02 22:19] VITALS: RESP 16
[2018-08-02] MEDS: VERAPAMIL SR 180 MG TABLET.ER PO SCH (23:22)
[2018-08-02] MEDS: ASPIRIN 325 MG TAB PO SCH (23:22)
[2018-08-02] MEDS: guaiFENesin 600 MG TABLET.ER PO SCH (23:22)
[2018-08-02] MEDS: ceFAZolin IN SWFI 2 GM/20 ML SYRINGE IVP SCH (23:28)
[2018-08-03] MEDS: IPRATROPIUM-ALBUTEROL 3 ML NEB INHALATION PRN ×3 (00:04→10:53)
[2018-08-03 07:13] VITALS: BP 131/69; TEMP 97.8
--- NOTE | 2018-08-03 07:19 | CONS ---
CONSULTATION DATE OF CONSULTATION: 08/02/2018 REASON FOR CONSULTATION: Medical management requested by Dr. Zavala. CONSULTATION: This is a pleasant 68-year-old patient of Dr. Srivastava who has undergone left total knee arthroplasty. Chronic stable medication conditions include atrial fibrillation, COPD, GERD, hypertension, osteoarthritis in the hands, especially. Pain is controlled. No nausea, vomiting. No cardiac history. Lying in bed. Did tolerate some supper. Patient did have bleeding with Eliquis in the past. Hence, patient is on aspirin. REVIEW OF SYSTEMS: CONSTITUTIONAL: None. HEENT None. RESPIRATORY: None. CARDIOVASCULAR: None. GASTROINTESTINAL: Heartburn. GENITOURINARY None. MUSCULOSKELETAL: Arthritic pain in the joints including the hands. DERMATOLOGICAL; None. HEMATOLOGICAL: None. LYMPHATIC: :None. PSYCHIATRY: None. NEUROLOGICAL: None. PAST MEDICAL HISTORY: Atrial fibrillation, COPD, GERD, hypertension, osteoarthritis. PAST SURGICAL HISTORY: Appendectomy, bladder surgery, hysterectomy, tonsillectomy, D and C, bladder suspension, 3 surgeries for hysterectomy, bilateral knee arthroscopy, right knee replacement, bilateral cataract removal. SOCIAL HISTORY: Patient smoked on and off since she was 14 years old, , no alcohol. FAMILY HISTORY: Colon cancer, hypertension. HOME MEDICATION: Ultram 50/100 mg q.6 p.r.n., Mucinex 1200 mg p.o. b.i.d., verapamil ER 180 mg daily, omeprazole 40 mg a day, DuoNeb q.i.d. p.r.n., Lasix 10 mg q.48 hours, iron 325 p.o. daily, Lipitor 20 mg p.o. daily, aspirin 325 p.o. daily. ALLERGIES: To VICODIN, CODEINE, ELIQUIS, causing bleeding. PHYSICAL EXAMINATION: Afebrile, pulse 76, respiration 18, blood pressure 110/56, pulse ox 97% on 3 L. GENERAL APPEARANCE: Average build, lying in bed, awake. EYES: Pupils equal, conjunctivae normal. HEENT: External appearance of nose and ears normal, oral cavity normal. NECK: JVD not raised. Mass not palpable. RESPIRATORY: Effort normal. LUNGS: Decreased breath sounds. CARDIOVASCULAR: First and second sounds normal. No edema. ABDOMEN: Soft, nontender. Liver and spleen not palpable. LYMPHATIC: No lymph node palpable. PSYCHIATRY: Alert and oriented x3. Mood and affect normal. NEUROLOGICAL: Pupils clear. Cranial nerves grossly intact. Power and sensation grossly intact. MUSCULOSKELETAL: Evidence of osteoarthritis, especially in the hands. INVESTIGATIONS: White count 9.3, hemoglobin 13.4, potassium 4.1. ASSESSMENT: 1. History of atrial fibrillation for which patient takes aspirin. 2. Chronic obstructive pulmonary disease in a current smoker. 3. Gastroesophageal reflux disease. 4. Hypertension. 5. Primary osteoarthritis. PLAN: Home medications are resumed. Patient will be given a nicotine patch. Getting IV fluids, getting IV Ancef for infection prophylaxis, DVT prophylaxis. Care was discussed with the patient. Questions were answered Thank you, Dr. Zavala. MMODL / IJN: [id number] /
[2018-08-03] MEDS ORDERED: PANTOPRAZOLE 40 MG TABLET PO SCH (07:30)
[2018-08-03] MEDS: SODIUM CHLORIDE 0.9% 1,000 ML IV SCH ×2 (07:42→08:32)
[2018-08-03] MEDS: ceFAZolin IN SWFI 2 GM/20 ML SYRINGE IVP SCH (08:32)
[2018-08-03] MEDS: ASPIRIN 325 MG TAB PO SCH (08:32)
[2018-08-03] MEDS: guaiFENesin 600 MG TABLET.ER PO SCH (08:33)
[2018-08-03] MEDS: VERAPAMIL SR 180 MG TABLET.ER PO SCH (08:34)
--- NOTE | 2018-08-03 08:35 | P.DS ---
Providers Date of admission: 08/02/18 14:02 Expected date of discharge: 08/03/18 Attending physician: Rito Zavala Consults: 08/02/18 15:54 Consult Physician Routine Consulting Provider: Bienvenido Ricci Consult Reason/Comments: medical management Do you want consulting provider notified?: Yes Primary care physician: Aylin Srivastaav - Discharge Diagnosis(es) (1) Primary osteoarthritis of left knee Current Visit: Yes Status: Acute (2) S/P total knee arthroplasty Current Visit: Yes Status: Acute Hospital Course: This is a 68-year-old female with known history of degenerative arthritis of the left knee. The patient presents for evaluation. After discussion and consideration patient elects to proceed with total knee arthroplasty. The patient is seen preoperatively by Dr. Zavala and medically cleared for surgery by their primary care physician. Patient is admitted to [facility] on 08/02/2018 for total knee arthroplasty. The procedures performed without complication or sequelae. The patient is doing well postoperatively. Labs and vital signs are stable on day of discharge. On day of discharge patient's knee incision is healing well. There is minimal erythema. There is no drainage noted at this time. There is minimal soft tissue swelling to the knee. Patient has full foot and ankle motion without difficulty or pain. Neurovascular status to the left lower extremity is intact. Patient is discharged home in good condition. Please see med rec for accurate list of home medications. Plan - Discharge Summary Discharge Rx Participant: Yes New Discharge Prescriptions: New Aspirin 325 mg PO BID #60 tab traMADol HCl [Ultram] 1 - 2 tab PO Q6H PRN #56 tab PRN Reason: Pain Sennosides [Senokot] 1 tab PO BID #60 tablet No Action Verapamil HCl [Verapamil ER] 180 mg PO BID Furosemide [Lasix] 10 mg PO Q48H guaiFENesin [Mucinex] 1,200 mg PO BID Ipratropium-Albuterol Nebulize [Duoneb 0.5 mg-3 mg/3 ml Soln] 3 ml INHALATION RT-QID PRN PRN Reason: Shortness Of Breath Aspirin 325 mg PO DAILY Ferrous Sulfate [Iron] 325 mg PO DAILY Omeprazole 40 mg PO DAILY #30 capsule. Atorvastatin [Lipitor] 20 mg PO DAILY traMADol HCl [Ultram] 50 - 100 mg PO Q6H PRN PRN Reason: Pain Discharge Medication List Aspirin 325 mg PO DAILY 05/27/18 [History] Ferrous Sulfate [Iron] 325 mg PO DAILY 05/27/18 [History] Furosemide [Lasix] 10 mg PO Q48H 05/27/18 [History] Ipratropium-Albuterol Nebulize [Duoneb 0.5 mg-3 mg/3 ml Soln] 3 ml INHALATION RT -QID PRN 05/27/18 [History] Verapamil HCl [Verapamil ER] 180 mg PO BID 05/27/18 [History] guaiFENesin [Mucinex] 1,200 mg PO BID 05/27/18 [History] Omeprazole 40 mg PO DAILY #30 capsule.dr 06/08/18 [Rx] Atorvastatin [Lipitor] 20 mg PO DAILY 07/28/18 [History] traMADol HCl [Ultram] 50 - 100 mg PO Q6H PRN 08/02/18 [History] Aspirin 325 mg PO BID #60 tab 08/03/18 [Rx] Sennosides [Senokot] 1 tab PO BID #60 tablet 08/03/18 [Rx] traMADol HCl [Ultram] 1 - 2 tab PO Q6H PRN #56 tab 08/03/18 [Rx] Follow up Appointment(s)/Referral(s): Rito Zavala DO [Doctor of Osteopathic Medicine] - 2 Weeks Activity/Diet/Wound Care/Special Instructions: Weightbearing as tolerated with a walker. Leave dressing intact. May be removed by home care nurse in 10 days. May shower with dressing on. Please follow up with [facility] and call with any questions or concerns, . Discharge Disposition: HOME WITH HOME HEALTH SERVICES
[2018-08-03 08:50] LABS: Anisocytosis Slight; Basophils % (A) 0 %; Eosinophils % (A) 0 %; HCT 34.9 % (34.0-46.0); HGB 11.3 gm/dL (11.4-16.0); Lymphocytes # (A) 0.9 k/uL (1.0-4.8); Lymphocytes % (A) 8 %; MCH 31.1 pg (25.0-35.0); MCHC 32.3 g/dL (31.0-37.0); MCV 96.3 fL (80.0-100.0); Mean Platelet Volume 7.6; Monocytes # (A) 0.7 k/uL (0-1.0); Monocytes % (A) 7 %; Neutrophils # (A) 9.1 k/uL (1.3-7.7); Neutrophils % (A) 84 %; Platelet Count 199 k/uL (150-450); RBC 3.63 m/uL (3.80-5.40); RDW 16.1 % (11.5-15.5); WBC 10.9 k/uL (3.8-10.6)
[2018-08-03] MEDS ORDERED: MELOXICAM 7.5 MG TAB PO SCH (09:00)
[2018-08-03] MEDS ORDERED: FERROUS SULFATE 325 MG TAB PO SCH (09:00)
[2018-08-03] MEDS ORDERED: ATORVASTATIN 20 MG TAB PO SCH (09:00)
--- NOTE | 2018-08-03 09:43 | P.PN ---
Progress Note - Text 08/03 708am 68-year-old female status post total knee replacement. Patient has an On-Q pump for postop pain control with the solution running at 8 mL an hour with a VAS of 0. Plan to continue On-Q pump infusion.
[2018-08-03 11:05] VITALS: PULSE 80
--- NOTE | 2018-08-03 22:18 | PN ---
PROGRESS NOTE DATE OF SERVICE: 08/03/2018 PRESENTING COMPLAINT: Left knee surgery. INTERVAL HISTORY: Patient is status post left knee surgery feeling better this morning. Did work with therapy. No chest pain or short of breath. Did tolerate her breakfast. No dizziness, lightheadedness. REVIEW OF SYSTEMS: Done for constitutional, cardiovascular, GI, pulmonary, musculoskeletal and relevant findings as above. CURRENT MEDICATIONS: Reviewed. PHYSICAL EXAMINATION: VITAL SIGNS: Temperature 97.8, pulse 81, respirations 16, blood pressure 131/69, pulse ox 95% on 2 L. GENERAL APPEARANCE: Sitting up, comfortable. EYES: Pupils are equal. Conjunctivae normal. NECK JVD not raised. Mass not palpable. RESPIRATORY: Effort normal. LUNGS: Slightly decreased breath sounds. CARDIOVASCULAR: 1st and 2nd sounds normal. No edema. ABDOMEN: Soft, nontender. Liver and spleen not palpable. PSYCHIATRY: Alert and oriented x3. Mood and affect normal. INVESTIGATIONS: White count 10.9, hemoglobin 11.3. ASSESSMENT: 1. History of atrial fibrillation for which patient takes aspirin. 2. Chronic obstructive pulmonary disease in a current smoker. 3. Gastroesophageal reflux disease. 4. Essential hypertension. 5. Primary osteoarthritis. 6. Acute postoperative blood loss anemia expected from surgery. 7. Leukocytosis probably reactive. 8. orthopedics, incision healing well. PLAN: Continue current medication and treatment plan. Care was discussed with the patient. DVT prophylaxis per Orthopedics. MMODL / IJN: [id number] /
== END 2018-08-03 13:35 | disposition home health service (06) | DRG 470 ==
LOC: 2ORMAIN 14:02 → 4SSUR 18:51
PROVIDERS: ADMIT Orthopaedic Surgery; ATTEND Orthopaedic Surgery
PROC: 0SRD069 Replacement of Left Knee Joint with Oxidized Zirconium on Polyethylene Synthetic Substitute, Cemented, Open Approach (ICD-10-PCS; principal; 2018-08-02 16:00)
DX: M17.12 Unilateral primary osteoarthritis, left knee (principal); F17.200 Nicotine dependence, unspecified, uncomplicated; I48.2 Chronic atrial fibrillation; J44.9 Chronic obstructive pulmonary disease, unspecified; K21.9 Gastro-esophageal reflux disease without esophagitis; M19.042 Primary osteoarthritis, left hand; M19.041 Primary osteoarthritis, right hand; I10 Essential (primary) hypertension; Z79.82 Long term (current) use of aspirin; Z79.899 Other long term (current) drug therapy; Z90.710 Acquired absence of both cervix and uterus; Z98.42 Cataract extraction status, left eye; Z98.41 Cataract extraction status, right eye; Z82.49 Family history of ischemic heart disease and other diseases of the circulatory system; Z80.0 Family history of malignant neoplasm of digestive organs
CPT/HCPCS: 85025; 88300; 94640